=== PATIENT | female | born 1955 | race Caucasian/White ===

== ENCOUNTER 2025-01-28 16:19 | Emergency (ER) | payer MEDICARE, OTHER, SELFPAY ==
[2025-01-28 16:27] VITALS: BP 92/59
[2025-01-28 16:47] VITALS: BMI 41.0
[2025-01-28 17:00] VITALS: BP 150/138
[2025-01-28 17:01] VITALS: BP 127/87
[2025-01-28 17:09] LABS: Hematocrit 38.9 % (37.0-47.0); Hemoglobin 13.4 g/dL (12.0-16.0); Mean Corp Hgb Conc. 34.4 g/dL (33.0-37.0); Mean Corpuscular Volume 87.0 fL (81.0-99.0); Nucleated Red Blood Cells % 0 %; Platelet Count 144 10^3/uL (130-400); Red Cell Dist. Width 13.2 % (11.5-14.5)
[2025-01-28 17:49] LABS: Troponin I < 0.012 ng/ml
--- NOTE | 2025-01-28 17:55 | ED.GENMED ---
History of Present Illness
General
Chief Complaint: Chest Pain
Source: patient and family (Daughter)
Exam Limitations: none
Time Seen by Provider: 01/28/25 16:56
Nursing documentation reviewed up to this point in time: agreed with
History of Present Illness
History of Present Illness:
The patient is a 69-year-old female with a past medical history of atrial fibrillation, COPD still smoking, coronary artery disease brought in by her daughter for several weeks of constant left-sided chest pressure and shortness of breath.
Patient's daughter reports that shortness of breath does not seem to be worse with laying flat or exertion. Additionally, the patient's daughter reports tremor in both of her mom's arms and hands which is new over the last few weeks. Patient also
reports diffuse headache. She denies fever and rash. She denies sore throat. Patient reports that at times her chest pain radiates into her upper back. Daughter reports the patient was recently evaluated in another emergency department and found
to have low magnesium. She was also found to have elevated LFTs and gallstones but no sign of acute cholecystitis. Additionally, the daughter reports that she has issues with constipation
Past History
Past History
ED Past Medical History: Arrthythmia, CAD, COPD and Other (Gallstones)
ED Past Surgical History: Cardiac (Cardiac stent) and Other (Pacemaker)
Social History
Tobacco: Smoker
Alcohol: Other
Drug: None
Personal: Other
Living: with family
Employment: Other
Family History
Family History: Other
Review of Systems
Review of Systems
Allergies reviewed?: Yes
All Other Systems: ROS reviewed and negative except as documented in HPI and ROS
Constitutional: Reports no symptoms
EENT: Reports no symptoms
Respiratory: Reports trouble breathing
Cardiac: Reports chest pain
ABD/GI: Reports no symptoms
: Reports no symptoms
Musculoskeletal: Reports no symptoms
Skin: Reports no symptoms
Neurological: Reports headache and other (Bilateral upper arm tremor)
Hematologic/Lymphatic: Reports no symptoms
Psychiatric: Reports no symptoms
Phy Exam
Physical Exam
Physical Exam:
Physical Exam
General: Patient appears anxious
Neck: supple. no meningeal signs. normal psoterior pharynx
Heart: s1/s2 regular rate and rhythm
Lungs: no acute respiratory distress. clear bilaterally
Abdomen: normal bowel sounds. not tender. no CVAT
Neuro: alert and oriented. no focal neurological deficits. Occasionally has tremors bilateral arms but then stops for several minutes and experiences tremor again.
Skin: no rash
Psychiatric: well kept. interactive and cooperative
Extremities: no edema. no calf tenderness. negative homans. good distal pulses
Scores
Heart Score for Chest Pain Patients
STEMI patient?: Not applicable
Course
Orders/Labs/Results
Orders:
Orders
01/28/25 16:20
Electrocardiogram (*1) Urgent
Reason for Study: Chest Pain
EKG- Treatment ONCE
01/28/25 16:58
Complete Blood Count/With Diff Urgent
Comprehensive Metabolic Panel Urgent
Magnesium Urgent
NT-proBNP Urgent
Troponin I Urgent
01/28/25 17:55
CT Chest/abd/pelvis Angio W/wo Urgent
Comment:
Reason For Exam: chest pain into back
01/28/25 18:01
CT Head W/o Iv Contrast Urgent
Comment:
Reason For Exam: headache, tremor
01/28/25 18:39
Urinalysis Reflex To Culture Urgent
Date Specimen was Collected: 01/28/25
Time Specimen was Collected: 18:02
Urine Microscopic Reflex Cult Urgent
Urine Culture Urgent
ALLY Source: U
Specimen Description:
Date Specimen was Collected: 01/28/25
Time Specimen was Collected: 18:02
01/28/25 19:57
Acetaminophen [Tylenol] 1,000 mg PO NOW STA
Abnormal Lab Results
01/28/25 01/28/25
16:58 18:39
WBC 4.5 L 10^3/uL
(4.8-10.8)
Absolute Lymphs (auto) 0.6 L 10^3/uL
(1.2-3.4)
Immature Gran % 0.7 H %
(0-0.5)
Neutrophils % 76.3 H %
(42.2-75.2)
Lymphocytes % 12.3 L %
(20.5-51.1)
Monocytes % 10.0 H %
(1.7-9.3)
BUN 26 H mg/dl
(7-17)
Alkaline Phosphatase 142 H U/L
(38-126)
Leukocyte Esterase Rfl 1+ A
(Negative)
Urine Bacteria (Reflex) Moderate A
(Negative)
Urine Albumin (Reflex) 1+ A
(Neg - Trace)
01/28/25 16:58
01/28/25 16:58
Vital Signs
Initial and Last Documented VS:
Initial Vital Signs
Temp Pulse Resp BP Pulse Ox
98.6 F 84 18 92/59 98
01/28/25 16:27 01/28/25 16:27 01/28/25 16:27 01/28/25 16:27 01/28/25 16:27
Last Documented Vital Signs
Temp Pulse Resp BP Pulse Ox
97.6 F 96 20 147/82 99
01/28/25 17:00 01/28/25 18:47 01/28/25 18:47 01/28/25 18:47 01/28/25 18:47
MDM/Problems Addressed
Differential Diagnosis Includes:
Acute coronary syndrome, COPD exacerbation, pneumonia, low serum magnesium, low serum potassium
MDM/Problems Addressed:
Patient presents with acute chest pain, shortness of breath and tremor
Chronic conditions affecting care: COPD
Acute Exacerbation and/or Progression of Chronic Illness:
Patient COPD may be acutely causing her to feel short of breath, however, she denies increased cough or wheezing
*Radiology
Radiology exam reviewed: preliminary read by ED provider and radiology read reviewed
*Pulse Oximetry
SaO2: 99
Oxygen Mode of Delivery: Room air
Patient hypoxic: no
Comment: 99% on room air
*EKG
Interpreted by ED Provider?: Yes
Interpretation: abnormal
Comparison EKG: no comparison EKG present
Rate: normal
Rhythm: sinus
[place]: normal axis
Interval: normal interval
QRS Pattern: right bundle branch block
Ischemia: no ischemia
*Celery Cutter Interpretation
Rate: normal
Interpretation: normal
Rhythm: sinus
*Critical Care Note
Total Time (30-74mins, 75-104mins- exclusive of procedures): Not Applicable
Data Reviewed
Source: patient and family
Patient Management
Social determinants of health affecting care: Living situation and Strong social support
Escalation/DeEscalation of care consider admission/obs:
Patient remains well-appearing without any signs of respiratory distress, tachypnea or hypoxia. There is no sign of CHF. Troponin is normal and EKG appears nonischemic. Additionally, there is no sign of aortic dissection or PE. There is no sign
of pneumonia. 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 Patient told to return with any worsening symptoms. Patient still has a mild headache, therefore, I will give her Tylenol.
In terms of her tremor, it has been intermittent in nature. Patient encouraged to follow-up with her primary care doctor for the tremor and I told her she may have to follow-up with neurology for this
Patient has no right upper quadrant pain or tenderness to suggest acute cholecystitis.
ED Attending Note
-
Portions of this chart may have been created with voice recognition software.� Occasional wrong word or��sound alike� substitutions may have occurred due to the inherent limitations of voice recognition software.
Discharge Plan
Departure
Patient Disposition: Home (Routine Discharge)
Date of Disposition: 01/28/25
Time of Disposition: 19:55
Patient with high blood pressure during this ER visit?: Yes
Condition: Good
Covid-19: Not Applicable
Discharge Problem:
Chest pain, Tremor
Instructions: Tremor, Chest Pain PCP Follow Up, BLOOD PRESSURE
Activity Restrictions/Additional Instructions:
Please call and follow-up with your own instant potato processing supervisor as soon as possible. Additionally, please be to your primary care doctor about your tremors. They may refer you to a neurologist. Please also show your primary care doctor copies of your CAT
scan reports
Interventions
Interventions:
*Risk Screen - Suicide Last Done: 01/28/25 16:35
*General Assessment Last Done: 01/28/25 17:00
*Neglect/Abuse Screening Last Done: 01/28/25 16:35
*ED- Fall Risk Assessment Last Done: 01/28/25 17:00
*ED COVID-19 Vaccine History Last Done: 01/28/25 17:00
ED- Cardiac Assessment Last Done: 01/28/25 17:00
Discharge Date and Time
Print Language: ITALIAN
[2025-01-28 17:56] LABS: ALT (SGPT) 32 U/L (0-35); AST (SGOT) 35 U/L (14-36); Albumin 3.9 g/dl (3.5-5.0); Alkaline Phosphatase 142 U/L (38-126); Blood Urea Nitrogen 26 mg/dl (7-17); Calcium 9.1 mg/dl (8.4-10.2); Carbon Dioxide 26 mmol/L (22-30); Chloride 106 mmol/L (98-107); Estimated Creatinine Clearance 67 ml/min; Glucose 98 mg/dl (70-99); Magnesium 1.6 mg/dl (1.6-2.3); Potassium 4.3 mmol/L (3.5-5.1); Sodium 135 mmol/L (135-145); Total Protein 6.5 g/dl (6.3-8.2); eGFR > 60.00
[2025-01-28 18:47] VITALS: BP 147/82
[2025-01-28 18:49] LABS: Urine Character Clear (Clear)
[2025-01-28 18:54] LABS: Urine Squamous Cell >30 /LPF (Few)
[2025-01-28 18:55] LABS: Urine Red Blood Cell 0-2 /HPF (0-2)
[2025-01-28] MEDS: TYLENOL 1000 MG PO (20:03)
== END 2025-01-28 20:14 | disposition home or self-care (01) ==
LOC: EMR 16:19
PROVIDERS: EMERGENCY PHYSICIAN Emergency Medicine; FAMILY PHYSICIAN Nurse Practitioner Adult Health
DX: R07.89 Other chest pain (principal); R25.1 Tremor, unspecified; I45.10 Unspecified right bundle-branch block; J44.9 Chronic obstructive pulmonary disease, unspecified; I25.10 Atherosclerotic heart disease of native coronary artery without angina pectoris; I48.91 Unspecified atrial fibrillation; F17.200 Nicotine dependence, unspecified, uncomplicated; Z95.5 Presence of coronary angioplasty implant and graft; Z95.0 Presence of cardiac pacemaker
CPT/HCPCS: 99284; 70450; 71275; 74174; 80053; 81003; 81015; 83735; 83880; 84484; 85025; 87086; 93005; Q9967